=== PATIENT | male | born 1990 | race Caucasian/White ===

== ENCOUNTER → 2016-09-22 | Outpatient (CLI) | payer OTHER | END | disposition home or self-care (01) | LOC: C.LAB 16:39 | DX: Z02.83 Encounter for blood-alcohol and blood-drug test (principal) ==

== ENCOUNTER → 2017-07-31 | Outpatient (CLI) | payer OTHER | END | disposition home or self-care (01) | LOC: C.LAB 23:49 | DX: Z02.83 Encounter for blood-alcohol and blood-drug test (principal) ==